=== PATIENT | female | born 2000 | race Caucasian/White ===

== ENCOUNTER 2019-01-01 08:18 | Emergency (ER) | payer OTHER, SELFPAY ==
[2019-01-01] MEDS ORDERED: predniSONE 20 MG TAB ONE (08:44)
== END 2019-01-01 11:00 | disposition home or self-care (01) ==
LOC: SCSER 08:18
DX: J45.901 Unspecified asthma with (acute) exacerbation (principal); Z79.51 Long term (current) use of inhaled steroids
CPT/HCPCS: 96360; 96361; J7512; J7620

== ENCOUNTER 2019-01-15 21:27 | Emergency (ER) | payer SELFPAY ==
--- NOTE | 2019-01-16 07:12 | RAD ---
4 VIEWS LEFT KNEE: Date: 01/15/19 HISTORY: Patient heard left knee pop on Monday and now has pain. FINDINGS: There is no evidence of a fracture, dislocation, or other osseous abnormality involving the left knee . IMPRESSION: No acute osseous abnormality. POS: OFF
== END 2019-01-15 23:18 | disposition home or self-care (01) ==
LOC: SCSER 21:27
DX: S83.92XA Sprain of unspecified site of left knee, initial encounter (principal); X58.XXXA Exposure to other specified factors, initial encounter

== ENCOUNTER 2019-02-25 17:30 | Emergency (ER) | payer SELFPAY ==
[2019-02-25] MEDS ORDERED: predniSONE 20 MG TAB ONE (19:06)
[2019-02-25] MEDS ORDERED: Albuterol Sulfate 2.5 mg/3 ml Neb ONE (19:10)
[2019-02-25] MEDS ORDERED: Albuterol Sulfate 2.5 mg/0.5 ml Neb ONE (19:10)
== END 2019-02-25 19:51 | disposition home or self-care (01) ==
LOC: ERS 17:30
DX: J45.901 Unspecified asthma with (acute) exacerbation (principal); F32.9 Major depressive disorder, single episode, unspecified; Z79.51 Long term (current) use of inhaled steroids
CPT/HCPCS: 94640; J7512; J7611; J7620

== ENCOUNTER 2020-05-14 17:33 | Emergency (ER) | payer SELFPAY ==
[2020-05-14] MEDS ORDERED: predniSONE 20 MG TAB ONE (18:44)
[2020-05-14] MEDS ORDERED: Lidocaine 1% w/Epinephrine 1:100K 20 ML VIAL ONE (18:47)
[2020-05-14] MEDS ORDERED: PROPOFOL 20 ML ONE (18:47)
[2020-05-14] MEDS ORDERED: Albuterol Sulfate 2.5 mg/3 ml Neb ONE (18:50)
== END 2020-05-14 19:56 | disposition home or self-care (01) ==
LOC: ERS 17:33
DX: J45.901 Unspecified asthma with (acute) exacerbation (principal); Z79.51 Long term (current) use of inhaled steroids
CPT/HCPCS: 94640; J2704; J7512; J7611; J7620